=== PATIENT | male | born 1985 | race Caucasian/White ===

== ENCOUNTER 2019-08-10 13:22 | Emergency (ER) | payer SELFPAY ==
[~2019-08-10] VITALS: Ht 180 cm; Wt 80.0 kg
[2019-08-10] MEDS ORDERED: NS IV 1000 ML 1,000 ML IV SCH (13:45)
[2019-08-10] MEDS ORDERED: ONDANSETRON 4 MG/2 ML (SDV) Z0FRAN IVP ONE (13:45)
[2019-08-10] MEDS ORDERED: fentaNYL INJECTION 100 MCG/2 ML AMP IVP ONE (13:45)
--- NOTE | 2019-08-10 13:48 | ED General ---
General Chief Complaint: Neurological Problems Stated Complaint: POSSIBLE SEIZURE History of Present Illness Date Seen by Provider: Aug 10, 2019 Time Seen by Provider: 16:41 Initial Comments Patient presenting to emergency department for evaluation of seizure-like activity that occurred while in the car earlier today. History was provided by EMS and mother and patient. They said that they went to go get something to eat and on the way home patient started having flailing activity of his arms and legs and mother said that she has had relatively seizures and this looked exactly like for body tonic-clonic seizure. She thinks it lasted around 1-2 minutes. Patient was slightly confused afterwards but there is no bowel or bladder incontinence or tongue biting. Patient denies ever having a seizure before in the past and does not take any seizure medications. He recently was in rehabilitation for alcohol but left rehabilitation 3 weeks ago but is still on gabapentin. Mother said that this is for withdrawal and to keep him from drinking. Patient says he has some upper abdominal pain and he had 2 episodes of nonbloody nonbilious emesis. He is in no obvious distress with normal vital signs. Allergies and Home Medications Allergies Coded Allergies: penicillin G (Verified Allergy, Unknown, 08/10/19) Patient Home Medication List Home Medication List Reviewed: Yes Review of Systems Review of Systems Constitutional: no symptoms reported EENTM: no symptoms reported Respiratory: no symptoms reported Cardiovascular: no symptoms reported Gastrointestinal: abdominal pain, nausea, vomiting Genitourinary: no symptoms reported Musculoskeletal: no symptoms reported Skin: no symptoms reported Psychiatric/Neurological: Seizure All Other Systems Reviewed Negative Unless Noted: Yes Past Oncrdxr-Byumqe-Xolqdx Hx Patient Social History Recent Foreign Travel: Yes Physical Exam Vital Signs Capillary Refill : Height, Weight, BMI Height: '" Weight: lbs. oz. kg; BMI Method: General Appearance: No Apparent Distress, WD/WN HEENT: PERRL/EOMI Neck: Supple Respiratory: Lungs Clear, No Respiratory Distress Cardiovascular: Regular Rate, Rhythm, Normal Peripheral Pulses Gastrointestinal: Non Tender, Soft Back: Normal Inspection Extremity: Normal Capillary Refill Neurologic/Psychiatric: Alert, Oriented x3, No Motor/Sensory Deficits, Normal Mood/Affect, general counselor II-XII Norm as Tested Skin: Warm/Dry Progress/Results/Core Measures Suspected Sepsis SIRS Temperature: Pulse: Respiratory Rate: Laboratory Tests 08/10/19 13:40: White Blood Count 9.9 Blood Pressure / Mean: Laboratory Tests 08/10/19 13:40: Creatinine 0.93, Platelet Count 296, Total Bilirubin 1.3H Results/Orders Lab Results Laboratory Tests Test 08/10/19 13:40 08/10/19 16:12 Range/Units White Blood Count 9.9 4.3-11.0 10^3/uL Red Blood Count 5.79 4.35-5.85 10^6/uL Hemoglobin 17.3 13.3-17.7 G/DL Hematocrit 51 40-54 % Mean Corpuscular Volume 88 80-99 FL Mean Corpuscular Hemoglobin 30 25-34 PG Mean Corpuscular Hemoglobin Concent 34 32-36 G/DL Red Cell Distribution Width 16.3 H 10.0-14.5 % Platelet Count 296 130-400 10^3/uL Mean Platelet Volume 9.2 7.4-10.4 FL Neutrophils (%) (Auto) 60 42-75 % Lymphocytes (%) (Auto) 28 12-44 % Monocytes (%) (Auto) 10 0-12 % Eosinophils (%) (Auto) 1 0-10 % Basophils (%) (Auto) 1 0-10 % Neutrophils # (Auto) 5.9 1.8-7.8 X 10^3 Lymphocytes # (Auto) 2.8 1.0-4.0 X 10^3 Monocytes # (Auto) 1.0 0.0-1.0 X 10^3 Eosinophils # (Auto) 0.1 0.0-0.3 10^3/uL Basophils # (Auto) 0.1 0.0-0.1 10^3/uL Sodium Level 140 135-145 MMOL/L Potassium Level 3.2 L 3.6-5.0 MMOL/L Chloride Level 96 L 98-107 MMOL/L Carbon Dioxide Level 20 L 21-32 MMOL/L Anion Gap 24 H 5-14 MMOL/L Blood Urea Nitrogen 4 L 7-18 MG/DL Creatinine 0.93 0.60-1.30 MG/DL Estimat Glomerular Filtration Rate > 60 BUN/Creatinine Ratio 4 Glucose Level 76 70-105 MG/DL Calcium Level 9.6 8.5-10.1 MG/DL Corrected Calcium 9.4 8.5-10.1 MG/DL Total Bilirubin 1.3 H 0.1-1.0 MG/DL Aspartate Amino Transf (AST/SGOT) 35 H 5-34 U/L Alanine Aminotransferase (ALT/SGPT) 37 0-55 U/L Alkaline Phosphatase 220 H 40-136 U/L Total Protein 7.8 6.4-8.2 GM/DL Albumin 4.3 3.2-4.5 GM/DL Lipase 25 8-78 U/L Salicylates Level < 0.3 L 5.0-20.0 MG/DL Acetaminophen Level < 10 L 10-30 UG/ML Serum Alcohol < 10 <10 MG/DL Urine Color YELLOW Urine Clarity CLEAR Urine pH 6.5 5-9 Urine Specific Bard 1.010 L 1.016-1.022 Urine Protein TRACE H NEGATIVE Urine Glucose (UA) NEGATIVE NEGATIVE Urine Ketones NEGATIVE NEGATIVE Urine Nitrite NEGATIVE NEGATIVE Urine Bilirubin NEGATIVE NEGATIVE Urine Urobilinogen 1.0 < = 1.0 MG/DL Urine Leukocyte Esterase NEGATIVE NEGATIVE Urine RBC (Auto) TRACE H NEGATIVE Urine RBC 0-2 /HPF Urine WBC NONE /HPF Urine Crystals NONE /LPF Urine Bacteria NONE /HPF Urine Casts PRESENT /LPF Urine Hyaline Casts RARE /LPF Urine Mucus NEGATIVE /LPF Urine Culture Indicated NO Urine Opiates Screen NEGATIVE NEGATIVE Urine Oxycodone Screen NEGATIVE NEGATIVE Urine Methadone Screen NEGATIVE NEGATIVE Urine Propoxyphene Screen NEGATIVE NEGATIVE Urine Barbiturates Screen NEGATIVE NEGATIVE Ur Tricyclic Antidepressants Screen NEGATIVE NEGATIVE Urine Phencyclidine Screen NEGATIVE NEGATIVE Urine Amphetamines Screen NEGATIVE NEGATIVE Urine Methamphetamines Screen NEGATIVE NEGATIVE Urine Benzodiazepines Screen NEGATIVE NEGATIVE Urine Cocaine Screen NEGATIVE NEGATIVE Urine Cannabinoids Screen NEGATIVE NEGATIVE My Orders Orders - JONNY BUSBY DO Ct Abdomen/Pelvis W (08/10/19 13:41) Ct Head Wo (08/10/19 13:41) Cbc With Automated Diff (08/10/19 13:41) Comprehensive Metabolic Panel (08/10/19 13:41) Alcohol (08/10/19 13:41) Acetaminophen (08/10/19 13:41) Ua Culture If Indicated (08/10/19 13:41) Salicylate (08/10/19 13:41) Drug Screen Stat (Urine) (08/10/19 13:41) Lipase (08/10/19 13:41) Ekg Tracing (08/10/19 13:41) Ondansetron Injection (Zofran Injectio (08/10/19 13:45) Ns Iv 1000 Ml (Sodium Chloride 0.9%) (08/10/19 13:45) Fentanyl Injection (Sublimaze Injection (08/10/19 13:45) Lactated Ringers (Lr 1000 Ml Iv Solution (08/10/19 14:45) Potassium Chloride (Tablet) (K Dur Table (08/10/19 14:45) Iohexol Injection (Omnipaque 350 Mg/Ml 1 (08/10/19 15:00) Received Contrast (Hold Metformin- Contr (08/10/19 15:00) Sodium Chloride Flush (Catheter Flush Sy (08/10/19 15:00) Ns (Ivpb) (Sodium Chloride 0.9% Ivpb Bag (08/10/19 15:00) Medications Given in ED Current Medications Medications Dose Ordered Sig/Ronnell Route Start Time Stop Time Status Last Admin Dose Admin Fentanyl Citrate 50 mcg ONCE ONCE IVP 08/10/19 13:45 08/10/19 13:46 DC 08/10/19 14:00 50 MCG Ondansetron HCl 4 mg ONCE ONCE IVP 08/10/19 13:45 08/10/19 13:46 DC 08/10/19 14:00 4 MG Potassium Chloride 40 meq ONCE ONCE PO 08/10/19 14:45 08/10/19 14:46 DC 08/10/19 15:25 40 MEQ Vital Signs/I&O Capillary Refill : Progress Note : Progress Note Patient certainly sounds as if he had a seizure. This would be his first time seizure. I told him I do not have EEG or MRI which would usually be recommended as a next step for first time seizure and that he would need to transfer him to the hospital with capabilities of doing these tests and a neurologic consultation. Patient said he did not want to do this at this time and he makes his own medical decisions. I explained why I wanted to the test and he verbalized understanding and accepted the risks of and disability by not going forward with continued workup. Mother stated that she would bring him back immediately if he had any seizure activity and that then they would be willing to be transferred. Patient told to keep taking all his medications as prescribed and follow primary care provider tomorrow or the next day as he will need further testing and likely consultation and to come back to emergency Department sooner with any worsening pain neurologic changes other general concerns. Patient and mother aware and agreeable with plan and verbalized understanding of the above instructions. Of note he had multiple insulin findings on CT and labs which I discussed with him and the need for follow-up for this as well. Departure Impression Primary Impression: Convulsions Qualified Codes: R56.9 - Unspecified convulsions Disposition: HOME, SELF-CARE Condition: Stable Departure-Patient Inst. Patient Instructions: Epilepsy in Adults JONNY BUSBY DO Aug 10, 2019 13:48
[2019-08-10 14:16] LABS: BASOPHILS # (AUTO) 0.1 10^3/uL (0.0-0.1); BASOPHILS % (AUTO) 1 % (0-10); EOSINOPHILS # (AUTO) 0.1 10^3/uL (0.0-0.3); EOSINOPHILS % (AUTO) 1 % (0-10); HEMATOCRIT 51 % (40-54); HEMOGLOBIN 17.3 G/DL (13.3-17.7); LYMPHOCYTES # (AUTO) 2.8 X 10^3 (1.0-4.0); LYMPHOCYTES % (AUTO) 28 % (12-44); MEAN CORPUSCULAR HEMOGLOBIN 30 PG (25-34); MEAN CORPUSCULAR HGB CONC 34 G/DL (32-36); MEAN CORPUSCULAR VOLUME 88 FL (80-99); MEAN PLATELET VOLUME 9.2 FL (7.4-10.4); MONOCYTES % (AUTO) 10 % (0-12); NEUTROPHILS # (AUTO) 5.9 X 10^3 (1.8-7.8); NEUTROPHILS % (AUTO) 60 % (42-75); PLATELET COUNT 296 10^3/uL (130-400); RED CELL DISTRIBUTION WIDTH 16.3 % (10.0-14.5); WHITE BLOOD COUNT 9.9 10^3/uL (4.3-11.0)
[2019-08-10 14:22] LABS: CARBON DIOXIDE 20 MMOL/L (21-32); CHLORIDE 96 MMOL/L (98-107); POTASSIUM 3.2 MMOL/L (3.6-5.0); SODIUM 140 MMOL/L (135-145)
[2019-08-10 14:23] LABS: ACETAMINOPHEN < 10 UG/ML (10-30); ALANINE AMINOTRANSFERASE 37 U/L (0-55); ALBUMIN 4.3 GM/DL (3.2-4.5); ALKALINE PHOSPHATASE 220 U/L (40-136); BILIRUBIN,TOTAL 1.3 MG/DL (0.1-1.0); BUN/CREATININE RATIO 4; CALCIUM 9.6 MG/DL (8.5-10.1); CREATININE SERUM 0.93 MG/DL (0.60-1.30); GFR ESTIMATED > 60; GLUCOSE 76 MG/DL (70-105); LIPASE 25 U/L (8-78); SALICYLATE < 0.3 MG/DL (5.0-20.0); TOTAL PROTEIN 7.8 GM/DL (6.4-8.2)
[2019-08-10] MEDS ORDERED: KCL 20 MEQ TAB (K-DUR) PO ONE (14:45)
[2019-08-10] MEDS ORDERED: LACTATED RINGERS 1,000 ML IV SCH (14:45)
[2019-08-10] MEDS ORDERED: CATHETER FLUSH 10 ML SYR IV PRN (15:00)
[2019-08-10] MEDS ORDERED: HOLD METFORMIN - RECEIVED CONTRAST 20 ML VIAL IV SCH (15:00)
[2019-08-10] MEDS ORDERED: IOHEXOL 350 MG/ML 100 ML (OMNIPAQUE 350) VIAL IV ONE (15:00)
[2019-08-10] MEDS ORDERED: NS 100 ML (IVPB) BAG IV ONE (15:00)
--- NOTE | 2019-08-10 15:02 | Diagnostic Imaging Report ---
PROCEDURE: CT head without contrast. TECHNIQUE: Multiple contiguous axial images were obtained through the brain without the use of intravenous contrast. Auto Exposure Controls were utilized during the CT exam to meet ALARA standards for radiation dose reduction. INDICATION: Blacked out. COMPARISON: No prior studies are available for comparison. FINDINGS: The ventricles and sulci are within normal limits. No sulcal effacement, midline shift, or hemorrhage is detected. The cisterns are patent. The visualized paranasal sinuses are clear. IMPRESSION: No acute intracranial process is detected. Dictated by: Dictated on workstation # [id number]
--- NOTE | 2019-08-10 15:09 | Diagnostic Imaging Report ---
PROCEDURE: CT abdomen and pelvis with contrast. TECHNIQUE: Multiple contiguous axial images were obtained through the abdomen and pelvis after administration of intravenous contrast. Auto Exposure Controls were utilized during the CT exam to meet ALARA standards for radiation dose reduction. INDICATION: Abdominal pain. COMPARISON: There are no prior studies available for comparison. FINDINGS: The liver is of lower density than usually seen. This appearance does suggest fatty metamorphosis. The liver is also mildly enlarged measuring 21 cm in length. There is no focal mass involving the liver and the biliary tree is not abnormally dilated. The spleen, pancreas, adrenals, kidneys, gallbladder, aorta and inferior vena cava show no sign of an acute abnormality. The stomach is partially filled with fluid and consequently difficult to assess. There is no pelvic mass or free fluid collection evident. The urinary bladder and prostate gland are grossly unremarkable. The appendix is not particularly well visualized but there are no indirect signs of acute appendicitis. The bone windows show no evidence for fracture or for destructive lesion. The lung bases are clear. IMPRESSION: 1. There is no acute abnormality of the abdomen or pelvis. 2. The liver is mildly enlarged and low density appearance of the liver does suggest fatty metamorphosis. Dictated by: Dictated on workstation # [id number]
[2019-08-10 16:23] LABS: BILIRUBIN,URINE NEGATIVE (NEGATIVE); CLARITY,URINE CLEAR; COLOR,URINE YELLOW; GLUCOSE, URINE (UA) NEGATIVE (NEGATIVE); HYALINE CASTS, URINE RARE /LPF; KETONES,URINE NEGATIVE (NEGATIVE); LEUKOCYTE ESTERASE ,URINE NEGATIVE (NEGATIVE); NITRITE,URINE NEGATIVE (NEGATIVE); PH,URINE 6.5 (5-9); PROTEIN,URINE TRACE (NEGATIVE); RBC,URINE 0-2 /HPF
[2019-08-10 16:28] LABS: AMPHETAMINE SCREEN, URINE NEGATIVE (NEGATIVE); BARBITURATE SCREEN URINE NEGATIVE (NEGATIVE); BENZODIAZEPINES SCREEN URINE NEGATIVE (NEGATIVE); CANNABINOID SCREEN, URINE NEGATIVE (NEGATIVE); COCAINE SCREEN URINE NEGATIVE (NEGATIVE); METHADONE STAT NEGATIVE (NEGATIVE); METHAMPHETAMINE SCREEN URINE S NEGATIVE (NEGATIVE); OPIATE SCREEN URINE NEGATIVE (NEGATIVE); OXYCODONE STAT NEGATIVE (NEGATIVE); PROPOXYPHENE STAT NEGATIVE (NEGATIVE); TRICYCLIC ANTIDEPRESSANTS SCRE NEGATIVE (NEGATIVE)
[2019-08-10 16:48] VITALS: BP 155/92
== END 2019-08-10 16:57 | disposition home or self-care (01) ==
LOC: ER FS 13:24
DX: R56.9 Unspecified convulsions (principal); Z88.0 Allergy status to penicillin
CPT/HCPCS: 36415; 70450; 74177; 80053; 80306; 80320; 80329; 81000; 83690; 85025; 93005

== ENCOUNTER 2019-09-12 20:24 | Emergency (ER) | payer SELFPAY ==
[~2019-09-12] VITALS: Ht 180.3 cm; Wt 81.7 kg
--- OUTSIDE RECORDS SUMMARY | 2019-09-12 20:40 | XMS REPORT | Continuity of Care Document ---
Author Organization Unknown Address Unknown Phone Unavailable Allergies Active Description Code Type Severity Reaction Onset Reported/Identified Relationship to Patient Clinical Status Yes No Known Drug Allergies [id number] Drug Allergy Unknown N/A 08/10/2019 Yes penicillin G [id number] Drug Allergy Unknown N/A 08/10/2019 Medications There is no data. Problems There is no data. Procedures There is no data. Results Test Result Range Complete blood count (CBC) with automate d white blood cell (WBC) differential - 08/10/19 13:40 Blood leukocytes automated count (number/volume) 9.9 10*3/uL 4.3-11.0 Blood erythrocytes automated count (number/volume) 5.79 10*6/uL 4.35-5.85 Venous blood hemoglobin measurement (mass/volume) 17.3 g/dL 13.3-17.7 Blood hematocrit (volume fraction) 51 % 40-54 Automated erythrocyte mean corpuscular volume 88 [ foz_us] 80-99 Automated erythrocyte mean corpuscular h emoglobin (mass per erythrocyte) 30 pg 25-34 Automated erythrocyte mean corpuscular h emoglobin concentration measurement (mass/volume) 34 g/dL 32-36 Automated erythrocyte distribution width ratio 16. 3 % 10.0- 14.5 Automated blood platelet count (count/volume) 296 10*3/uL 130-400 Automated blood platelet mean volume measurement 9.2 [foz_us] 7.4-10.4 Automated blood neutrophils/100 leukocytes 60 % 42-75 Automated blood lymphocytes/100 leukocytes 28 % 12-44 Blood monocytes/100 leukocytes 10 % 0-12 Automated blood eosinophils/100 leukocytes 1 % 0-10 Automated blood basophils/100 leukocytes 1 % 0-10 Blood neutrophils automated count (number/volume) 5.9 10*3 1.8-7.8 Blood lymphocytes automated count (number/volume) 2.8 10*3 1.0-4.0 Blood monocytes automated count (number/volume) 1. 0 10*3 0.0-1.0 Automated eosinophil count 0.1 10*3/uL 0 .0-0.3 Automated blood basophil count (count/volume) 0.1 10*3/uL 0.0-0.1 Comprehensive metabolic panel - 08/10/19 13:40 Serum or plasma sodium measurement (moles/volume) 140 mmol/L 135-145 Serum or plasma potassium measurement (moles/volume) 3.2 mmol/L 3.6-5.0 Serum or plasma chloride measurement (moles/volume) 96 mmol/L 98-107 Carbon dioxide 20 mmol/L 21-32 Serum or plasma anion gap determination (moles/volume) 24 mmol/L 5-14 Serum or plasma urea nitrogen measurement (mass/volume ) 4 mg/dL 7-18 Serum or plasma creatinine measurement (mass/volume) 0.93 mg/dL 0.60-1.30 Serum or plasma urea nitrogen/creatinine mass ratio 4 NRG Serum or plasma creatinine measurement w ith calculation of estimated glomerular filtration rate > NRG Serum or plasma glucose measurement (mass/volume) 76 mg/dL 70-105 Serum or plasma calcium measurement (mass/volume) 9.6 mg/dL 8.5-10.1 Serum or plasma total bilirubin measurement (mass/volu me) 1.3 mg/dL 0.1-1.0 Serum or plasma alkaline phosphatase lazaro surement (enzymatic activity/volume) 220 U/L 40-136 Serum or plasma aspartate aminotransfera se measurement (enzymatic activity/volume) 35 U/L 5-34 Serum or plasma alanine aminotransferase measurement (enzymatic activity/volume) 37 U/L 0-55 Serum or plasma protein measurement (mass/volume) 7.8 g/dL 6.4-8.2 Serum or plasma albumin measurement (mass/volume) 4.3 g/dL 3.2-4.5 CALCIUM CORRECTED 9.4 mg/dL 8.5-10.1 Lipase - 08/10/19 13:40 Lipase 25 U/L 8-78 Serum or plasma salicylates measurement (mass/volume) - 08/10/19 13:40 Serum or plasma salicylates measurement (mass/volume) < mg/dL 5.0-20.0 Serum or plasma acetaminophen measuremen t (mass/volume) - 08/10/19 13:40 Serum or plasma acetaminophen measurement (mass/volume ) < ug/mL 10-30 Serum or plasma ethanol measurement (mas s/volume) - 08/10/19 13:40 Serum or plasma ethanol measurement (mass/volume) < mg/dL <10 Complete urinalysis with reflex to cultu re - 08/10/19 16:12 Urine color determination YELLOW NRG Urine clarity determination CLEAR NR G Urine pH measurement by test strip 6.5 5-9 Specific gravity of urine by test strip 1.010 1.016-1.022 Urine protein assay by test strip, semi-quantitative TRACE NEGATIVE Urine glucose detection by automated test strip NE GATIVE NEGATIVE Erythrocytes detection in urine sediment by light micr oscopy TRACE NEGATIVE Urine ketones detection by automated test strip NE GATIVE NEGATIVE Urine nitrite detection by test strip NEGATIVE NEGATIVE Urine total bilirubin detection by test strip NEGA TIVE NEGATIVE Urine urobilinogen measurement by automated test strip (mass/volume) 1.0 mg/dL < = 1.0 Urine leukocyte esterase detection by dipstick NEG ATIVE NEGATIVE Automated urine sediment erythrocyte cou nt by microscopy (number/high power field) [HPF] NRG Automated urine sediment leukocyte count by microscopy (number/high power field) NONE NRG Bacteria detection in urine sediment by light microsco py NONE NRG Crystals detection in urine sediment by light microsco py NONE NRG Casts detection in urine sediment by light microscopy PRESENT NRG Mucus detection in urine sediment by light microscopy NEGATIVE NRG Complete urinalysis with reflex to culture NO NRG Hyaline casts detection in urine sediment by light ariela roscopy RARE NRG Urine drug screening test - 08/10/19 16: 12 Urine phencyclidine detection by screening method NEGATIVE NEGATIVE Urine benzodiazepines detection by screening method NEGATIVE NEGATIVE Urine cocaine detection NEGATIVE NEGATI VE Urine amphetamines detection by screening method N EGATIVE NEGATIVE Urine methamphetamine detection by screening method NEGATIVE NEGATIVE Urine cannabinoids detection by screening method N EGATIVE NEGATIVE Urine opiates detection by screening method NEGATI VE NEGATIVE Urine barbiturates detection NEGATIVE N EGATIVE Screening urine tricyclic antidepressants detection NEGATIVE NEGATIVE Urine methadone detection by screening method NEGA TIVE NEGATIVE Urine oxycodone detection NEGATIVE NEGA TIVE Urine propoxyphene detection NEGATIVE N EGATIVE Encounters ACCT No. Visit Date/Time Discharge Status Pt. Type Provider Facility Loc./Unit Complaint [id number] 08/10/2019 13:24:00 020 16:57:00 DIS Emergency JONNY BUSBY DO [facility] FS POSSIBLE SEIZURE
--- NOTE | 2019-09-12 20:44 | ED Syncope ---
General Chief Complaint: Dizziness/Syncope Stated Complaint: NEAR SYNCOPE Source of Information: Patient Exam Limitations: No Limitations History of Present Illness Date Seen by Provider: Sep 12, 2019 Time Seen by Provider: 20:35 Initial Comments Patient resents ER by EMS from [place] with chief complaint that about an hour ago he was paying for gas and got his debit card out and dropped it on the ground. When he bent over to pick it up he became woozy lightheaded dizzy and felt like he was going to black out. He immediately sat down on the ground and help was summonsed. If the blood sugar 134 per EMS. He denies ever losing consciousness. He has no history of epilepsy, syncopal episodes, coronary disease, dysrhythmias palpitations chest pain or shortness of breath. He had a wave of nausea that went away. He said he had a cold sweat for couple minutes when it first happened. No history of diabetes. Does not take any medications. Allergies and Home Medications Allergies Coded Allergies: penicillin G (Verified Allergy, Unknown, 08/10/19) Patient Home Medication List Home Medication List Reviewed: Yes Review of Systems Constitutional: No chills, No diaphoresis EENTM: No ear discharge, No ear pain Respiratory: No cough, No short of breath Cardiovascular: No chest pain, No edema Gastrointestinal: No abdominal pain, No constipation Genitourinary: No discharge, No dysuria Musculoskeletal: No back pain, No joint pain All Other Systems Reviewed Negative Unless Noted: Yes Past Smzqfda-Gqcyym-Vwqkru Hx Patient Social History Alcohol Use: Denies Use Recreational Drug Use: No Smoking Status: Current Everyday Smoker Type Used: Cigarettes 2nd Hand Smoke Exposure: No Recent Foreign Travel: No Contact w/Someone Who Travel: No Recent Hopitalizations: No Seasonal Allergies Seasonal Allergies: No Past Medical History Surgeries: Yes (THORACIC SURGERY) Respiratory: No Cardiac: No Neurological: No Genitourinary: No Gastrointestinal: No Musculoskeletal: No Endocrine: No HEENT: No Psychosocial: Yes (ALCOHOLISM) Anxiety Integumentary: No Physical Exam Vital Signs Vital Signs - First Documented 09/12/19 20:29 Temp 36.7 Pulse 86 Resp 18 B/P (MAP) 112/78 (89) O2 Delivery Room Air Capillary Refill : Height, Weight, BMI Height: '" Weight: lbs. oz. kg; 24.00 BMI Method: General Appearance: No Apparent Distress, WD/WN HEENT: PERRL/EOMI, Pharynx Normal, Moist Mucous Membranes Neck: Full Range of Motion, Normal Inspection Cardiovascular: Regular Rate, Rhythm, No Edema, No Gallop, No JVD, No Murmur, Normal Peripheral Pulses Respiratory: Chest Non Tender, Lungs Clear, Normal Breath Sounds, No Accessory Muscle Use, No Respiratory Distress Gastrointestinal: Normal Bowel Sounds, Non Tender, Soft Extremities: Normal Capillary Refill, Normal Inspection, No Pedal Edema Neurologic/Psychiatric: Alert, Oriented x3, No Motor/Sensory Deficits, Normal Mood/Affect, vba developer II-XII Norm as Tested, Other (walk to the bathroom unaided) Cranial Nerves: Normal Hearing, Normal Speech, PERRL Motor/Sensory: No Motor Deficit, No Sensory Deficit Skin: Normal Color, Warm/Dry Progress/Results/Core Measures Results/Orders Lab Results Laboratory Tests Test 09/12/19 20:50 09/12/19 21:05 Range/Units White Blood Count 10.4 4.3-11.0 10^3/uL Red Blood Count 5.13 4.35-5.85 10^6/uL Hemoglobin 16.1 13.3-17.7 G/DL Hematocrit 47 40-54 % Mean Corpuscular Volume 92 80-99 FL Mean Corpuscular Hemoglobin 31 25-34 PG Mean Corpuscular Hemoglobin Concent 34 32-36 G/DL Red Cell Distribution Width 15.0 H 10.0-14.5 % Platelet Count 376 130-400 10^3/uL Mean Platelet Volume 8.8 7.4-10.4 FL Neutrophils (%) (Auto) 70 42-75 % Lymphocytes (%) (Auto) 20 12-44 % Monocytes (%) (Auto) 8 0-12 % Eosinophils (%) (Auto) 2 0-10 % Basophils (%) (Auto) 1 0-10 % Neutrophils # (Auto) 7.2 1.8-7.8 X 10^3 Lymphocytes # (Auto) 2.1 1.0-4.0 X 10^3 Monocytes # (Auto) 0.8 0.0-1.0 X 10^3 Eosinophils # (Auto) 0.2 0.0-0.3 10^3/uL Basophils # (Auto) 0.1 0.0-0.1 10^3/uL Sodium Level 140 135-145 MMOL/L Potassium Level 3.7 3.6-5.0 MMOL/L Chloride Level 101 98-107 MMOL/L Carbon Dioxide Level 27 21-32 MMOL/L Anion Gap 12 5-14 MMOL/L Blood Urea Nitrogen 10 7-18 MG/DL Creatinine 1.08 0.60-1.30 MG/DL Estimat Glomerular Filtration Rate > 60 BUN/Creatinine Ratio 9 Glucose Level 107 H 70-105 MG/DL Calcium Level 8.7 8.5-10.1 MG/DL Corrected Calcium 8.7 8.5-10.1 MG/DL Total Bilirubin 0.4 0.1-1.0 MG/DL Aspartate Amino Transf (AST/SGOT) 27 5-34 U/L Alanine Aminotransferase (ALT/SGPT) 48 0-55 U/L Alkaline Phosphatase 168 H 40-136 U/L Troponin I < 0.30 <0.30 NG/ML Pro-B-Type Natriuretic Peptide 43.7 <75.0 PG/ML Total Protein 7.2 6.4-8.2 GM/DL Albumin 4.0 3.2-4.5 GM/DL Urine Color YELLOW Urine Clarity CLEAR Urine pH 7.0 5-9 Urine Specific [place] 1.010 L 1.016-1.022 Urine Protein 1+ H NEGATIVE Urine Glucose (UA) NEGATIVE NEGATIVE Urine Ketones NEGATIVE NEGATIVE Urine Nitrite NEGATIVE NEGATIVE Urine Bilirubin NEGATIVE NEGATIVE Urine Urobilinogen 2.0 < = 1.0 MG/DL Urine Leukocyte Esterase NEGATIVE NEGATIVE Urine RBC (Auto) NEGATIVE NEGATIVE Urine RBC NONE /HPF Urine WBC NONE /HPF Urine Crystals NONE /LPF Urine Bacteria NEGATIVE /HPF Urine Casts NONE /LPF Urine Mucus NEGATIVE /LPF Urine Culture Indicated NO Urine Opiates Screen NEGATIVE NEGATIVE Urine Oxycodone Screen NEGATIVE NEGATIVE Urine Methadone Screen NEGATIVE NEGATIVE Urine Propoxyphene Screen NEGATIVE NEGATIVE Urine Barbiturates Screen NEGATIVE NEGATIVE Ur Tricyclic Antidepressants Screen NEGATIVE NEGATIVE Urine Phencyclidine Screen NEGATIVE NEGATIVE Urine Amphetamines Screen NEGATIVE NEGATIVE Urine Methamphetamines Screen NEGATIVE NEGATIVE Urine Benzodiazepines Screen NEGATIVE NEGATIVE Urine Cocaine Screen NEGATIVE NEGATIVE Urine Cannabinoids Screen NEGATIVE NEGATIVE My Orders Orders - DEE MUKHERJEE Ekg Tracing (09/12/19 20:41) Continuous Ekg Monitoring (09/12/19 20:41) Chest 1 View Ap/Pa Only (09/12/19 20:41) Cbc With Automated Diff (09/12/19 20:41) Comprehensive Metabolic Panel (09/12/19 20:41) Ua Culture If Indicated (09/12/19 20:41) Drug Screen Stat (Urine) (09/12/19 20:41) Orthostatic Vital Signs (Adult (09/12/19 20:41) Troponin I Fs (09/12/19 20:41) Probnp Fs (09/12/19 20:41) Vital Signs/I&O 09/12/19 09/12/19 20:29 21:00 Temp 36.7 Pulse 86 86 82 102 Resp 18 B/P (MAP) 112/78 (89) 112/78 (89) 110/81 (91) 93/57 (69) O2 Delivery Room Air Progress Progress Note : Time: 22:08 Progress Note Near syncopal event. His labs including troponin and BNP are okay. -2 points on the [place] syncope score. Very low risk; 0.7% risk of 30-day serious adverse event. EKG unremarkable. Orthostatics go from 112 to 93 systolic standing which is 1 mmHg short of being positive. We gave him a liter fluids and encouraged him to drink oral fluids. Initial ECG Impression Date: Sep 12, 2019 Initial ECG Impression Time: 20:51 Initial ECG Rate: 68 Initial ECG Rhythm: Normal Sinus Initial ECG Intervals: Normal Initial ECG Impression: Normal Comment Normal sinus rhythm without clinically relevant ST elevation or depression. Diagnostic Imaging Diagonstic Imaging: Xray Plain Films/CT/US/NM/MRI: chest Comments [facility], [facility]. [place], [place] NAME: MILAGRO RANDALL [facility] REC#: [id number] PT STATUS: REG ER : 1985 PHYSICIAN: DEE MUKHERJEE MD ADMIT DATE: 09/12/19/ER FS Signed Date of Exam:09/12/19 CHEST 1 VIEW AP/PA ONLY INDICATION: Acute onset dizziness. TECHNIQUE: Single view chest 9:01 PM. CORRELATION STUDY: None FINDINGS: The heart size, mediastinal configuration and pulmonary vascularity are within normal limits. The lungs are clear with no consolidating infiltrate. There is no significant effusion or pneumothorax. Surgical clips are noted the base of neck on the right. IMPRESSION: 1. Negative for acute abnormality of the chest on single view chest. Dictated by: Dictated on workstation # [id number] Dict: 09/12/192122 Trans: 09/12/192203 DO [id number] Interpreted by: ENDY ESCOBAR DO Electronically signed by: ENDY ESCOBAR DO 09/12/192203 Reviewed: Reviewed by Me Departure Impression Primary Impression: Postural dizziness with near syncope Disposition: HOME, SELF-CARE Condition: Stable Departure-Patient Inst. Decision time for Depature: 22:12 Referrals: Guanakito MORIN MD NO,LOCAL PHYSICIAN (PCP) Primary Care Physician Patient Instructions: Syncope (Fainting) (DC) Add. Discharge Instructions: I suspect your syncope/nearly passing out is partially because you are mildly dehydrated and partially because of your posture when you're bending over. I encourage you to drink lots of fluids over the next couple days. Tomorrow call the emergency department technician Dr. Morin for a follow-up appointment in the clinic to discuss your symptoms and continue any further indicated workup. Return to the ER to begin to experience chest pain, shortness of breath or other worrisome symptoms All discharge instructions reviewed with patient and/or family. Voiced understanding. Copy Copies To 1: Guanakito MORIN MD, TITUS J Sep 12, 2019 20:44
[2019-09-12 20:57] LABS: WHITE BLOOD COUNT 10.4 10^3/uL (4.3-11.0)
[2019-09-12 20:58] LABS: BASOPHILS # (AUTO) 0.1 10^3/uL (0.0-0.1); BASOPHILS % (AUTO) 1 % (0-10); EOSINOPHILS # (AUTO) 0.2 10^3/uL (0.0-0.3); EOSINOPHILS % (AUTO) 2 % (0-10); HEMATOCRIT 47 % (40-54); HEMOGLOBIN 16.1 G/DL (13.3-17.7); LYMPHOCYTES # (AUTO) 2.1 X 10^3 (1.0-4.0); LYMPHOCYTES % (AUTO) 20 % (12-44); MEAN CORPUSCULAR HEMOGLOBIN 31 PG (25-34); MEAN CORPUSCULAR HGB CONC 34 G/DL (32-36); MEAN CORPUSCULAR VOLUME 92 FL (80-99); MEAN PLATELET VOLUME 8.8 FL (7.4-10.4); MONOCYTES # (AUTO) 0.8 X 10^3 (0.0-1.0); MONOCYTES % (AUTO) 8 % (0-12); NEUTROPHILS # (AUTO) 7.2 X 10^3 (1.8-7.8); NEUTROPHILS % (AUTO) 70 % (42-75); PLATELET COUNT 376 10^3/uL (130-400)
[2019-09-12 21:00] VITALS: BP_SYST 110; BP_SYST 112; BP_SYST 93; BP_DIAS 57; BP_DIAS 78; BP_DIAS 81
[2019-09-12 21:16] LABS: CARBON DIOXIDE 27 MMOL/L (21-32); CHLORIDE 101 MMOL/L (98-107); POTASSIUM 3.7 MMOL/L (3.6-5.0); SODIUM 140 MMOL/L (135-145)
[2019-09-12 21:17] LABS: ALANINE AMINOTRANSFERASE 48 U/L (0-55); ALKALINE PHOSPHATASE 168 U/L (40-136); BILIRUBIN,TOTAL 0.4 MG/DL (0.1-1.0); BUN/CREATININE RATIO 9; CALCIUM 8.7 MG/DL (8.5-10.1); CREATININE SERUM 1.08 MG/DL (0.60-1.30); GFR ESTIMATED > 60; GLUCOSE 107 MG/DL (70-105); TOTAL PROTEIN 7.2 GM/DL (6.4-8.2)
[2019-09-12 21:22] LABS: BACTERIA,URINE NEGATIVE /HPF; BILIRUBIN,URINE NEGATIVE (NEGATIVE); CLARITY,URINE CLEAR; COLOR,URINE YELLOW; GLUCOSE, URINE (UA) NEGATIVE (NEGATIVE); KETONES,URINE NEGATIVE (NEGATIVE); LEUKOCYTE ESTERASE ,URINE NEGATIVE (NEGATIVE); NITRITE,URINE NEGATIVE (NEGATIVE); PROTEIN,URINE 1+ (NEGATIVE)
[2019-09-12 21:24] LABS: AMPHETAMINE SCREEN, URINE NEGATIVE (NEGATIVE); BARBITURATE SCREEN URINE NEGATIVE (NEGATIVE); BENZODIAZEPINES SCREEN URINE NEGATIVE (NEGATIVE); CANNABINOID SCREEN, URINE NEGATIVE (NEGATIVE); COCAINE SCREEN URINE NEGATIVE (NEGATIVE); METHADONE STAT NEGATIVE (NEGATIVE); METHAMPHETAMINE SCREEN URINE S NEGATIVE (NEGATIVE); OPIATE SCREEN URINE NEGATIVE (NEGATIVE); OXYCODONE STAT NEGATIVE (NEGATIVE); PROPOXYPHENE STAT NEGATIVE (NEGATIVE); TRICYCLIC ANTIDEPRESSANTS SCRE NEGATIVE (NEGATIVE)
--- NOTE | 2019-09-12 21:24 | Diagnostic Imaging Report ---
INDICATION: Acute onset dizziness. TECHNIQUE: Single view chest 9:01 PM. CORRELATION STUDY: None FINDINGS: The heart size, mediastinal configuration and pulmonary vascularity are within normal limits. The lungs are clear with no consolidating infiltrate. There is no significant effusion or pneumothorax. Surgical clips are noted the base of neck on the right. IMPRESSION: 1. Negative for acute abnormality of the chest on single view chest. Dictated by: Dictated on workstation # [id number]
[2019-09-12 22:24] VITALS: BP 119/77
== END 2019-09-12 22:24 | disposition home or self-care (01) ==
LOC: EDUNIT# 20:24 → ER FS 20:35
DX: R42 Dizziness and giddiness (principal); R55 Syncope and collapse; F17.210 Nicotine dependence, cigarettes, uncomplicated; Z88.0 Allergy status to penicillin
CPT/HCPCS: 36415; 71045; 80053; 80306; 81000; 83880; 84484; 85025; 93005

== ENCOUNTER 2020-03-16 17:18 | Emergency (ER) | payer SELFPAY ==
[~2020-03-16] VITALS: Ht 177.8 cm; Wt 81.8 kg
--- NOTE | 2020-03-16 17:35 | ED General ---
General Chief Complaint: Detox Stated Complaint: DETOX Source of Information: Patient History of Present Illness Date Seen by Provider: Mar 16, 2020 Time Seen by Provider: 17:32 Initial Comments 34-year-old male presents after drinking 4 pints of vodka today. History of chronic alcoholism and normally drinks 2-3 pints of vodka per day, today he drank 4. Interested in going to detox and says he has an appointment to be seen in [place] on 27 March for detox program. Has previously gone through one of these, but has relapsed. Currently involved with Alcoholics Anonymous. Denies suicidal or homicidal ideation, but is depressed. No new life Stressors. Allergies and Home Medications Allergies Coded Allergies: penicillin G (Verified Allergy, Unknown, 08/10/19) Patient Home Medication List Home Medication List Reviewed: Yes Review of Systems Review of Systems Constitutional: No chills, No fever; malaise; No weakness EENTM: no symptoms reported Respiratory: No cough, No short of breath Cardiovascular: No chest pain, No edema, No palpitations Gastrointestinal: No abdominal pain, No loss of appetite, No nausea, No vomiting Musculoskeletal: No back pain, No joint pain Skin: No change in color, No rash Psychiatric/Neurological: Denies Anxiety; Depressed; Denies Numbness, Denies Paresthesia, Denies Seizure, Denies Weakness Past Yioyvma-Gofvyd-Kpuhrm Hx Past Med/Social Hx: Reviewed Nursing Past Med/Soc Hx Patient Social History Type Used: Cigarettes 2nd Hand Smoke Exposure: No Recent Foreign Travel: No Contact w/Someone Who Travel: No Recent Hopitalizations: No Seasonal Allergies Seasonal Allergies: No Past Medical History Surgeries: Yes (THORACIC SURGERY) Respiratory: No Cardiac: No Neurological: No Genitourinary: No Gastrointestinal: No Musculoskeletal: No Endocrine: No HEENT: No Cancer: No Psychosocial: Yes (ALCOHOLISM) Anxiety Integumentary: No Blood Disorders: No Physical Exam Vital Signs Vital Signs - First Documented 03/16/20 17:35 Temp 37.1 Pulse 108 Resp 20 B/P (MAP) 135/98 (110) Pulse Ox 97 O2 Delivery Room Air Capillary Refill : Height, Weight, BMI Height: '" Weight: lbs. oz. kg; 25.00 BMI Method: General Appearance: No Apparent Distress, WD/WN HEENT: PERRL/EOMI, Normal ENT Inspection Neck: Full Range of Motion, Non Tender, Supple Respiratory: Chest Non Tender, Lungs Clear, Normal Breath Sounds Cardiovascular: Regular Rate, Rhythm, No Edema, No JVD Gastrointestinal: Normal Bowel Sounds, Non Tender, Soft Back: Normal Inspection, No CVA Tenderness Extremity: Normal Capillary Refill, Normal Inspection, Non Tender Neurologic/Psychiatric: Alert, Oriented x3, No Motor/Sensory Deficits, Other (clinically intoxicated.) Skin: Normal Color, Warm/Dry Progress/Results/Core Measures Suspected Sepsis SIRS Temperature: Pulse: Respiratory Rate: Laboratory Tests 03/16/20 17:35: White Blood Count 7.7 Blood Pressure / Mean: Laboratory Tests 03/16/20 17:35: Creatinine 0.85, Platelet Count 346, Total Bilirubin 0.5 Results/Orders Lab Results Laboratory Tests Test 03/16/20 17:23 03/16/20 17:35 Range/Units Urine Opiates Screen NEGATIVE NEGATIVE Urine Oxycodone Screen NEGATIVE NEGATIVE Urine Methadone Screen NEGATIVE NEGATIVE Urine Propoxyphene Screen NEGATIVE NEGATIVE Urine Barbiturates Screen NEGATIVE NEGATIVE Ur Tricyclic Antidepressants Screen NEGATIVE NEGATIVE Urine Phencyclidine Screen NEGATIVE NEGATIVE Urine Amphetamines Screen NEGATIVE NEGATIVE Urine Methamphetamines Screen NEGATIVE NEGATIVE Urine Benzodiazepines Screen NEGATIVE NEGATIVE Urine Cocaine Screen NEGATIVE NEGATIVE Urine Cannabinoids Screen NEGATIVE NEGATIVE White Blood Count 7.7 4.3-11.0 10^3/uL Red Blood Count 5.50 4.35-5.85 10^6/uL Hemoglobin 17.4 13.3-17.7 G/DL Hematocrit 50 40-54 % Mean Corpuscular Volume 91 80-99 FL Mean Corpuscular Hemoglobin 32 25-34 PG Mean Corpuscular Hemoglobin Concent 35 32-36 G/DL Red Cell Distribution Width 14.1 10.0-14.5 % Platelet Count 346 130-400 10^3/uL Mean Platelet Volume 9.0 7.4-10.4 FL Immature Granulocyte % (Auto) 0 % Neutrophils (%) (Auto) 51 42-75 % Lymphocytes (%) (Auto) 41 12-44 % Monocytes (%) (Auto) 6 0-12 % Eosinophils (%) (Auto) 1 0-10 % Basophils (%) (Auto) 1 0-10 % Neutrophils # (Auto) 3.9 1.8-7.8 X 10^3 Lymphocytes # (Auto) 3.1 1.0-4.0 X 10^3 Monocytes # (Auto) 0.5 0.0-1.0 X 10^3 Eosinophils # (Auto) 0.1 0.0-0.3 10^3/uL Basophils # (Auto) 0.1 0.0-0.1 10^3/uL Immature Granulocyte # (Auto) 0.0 0.0-0.1 10^3/uL Sodium Level 142 135-145 MMOL/L Potassium Level 3.7 3.6-5.0 MMOL/L Chloride Level 105 98-107 MMOL/L Carbon Dioxide Level 24 21-32 MMOL/L Anion Gap 13 5-14 MMOL/L Blood Urea Nitrogen 7 7-18 MG/DL Creatinine 0.85 0.60-1.30 MG/DL Estimat Glomerular Filtration Rate > 60 BUN/Creatinine Ratio 8 Glucose Level 133 H 70-105 MG/DL Calcium Level 8.5 8.5-10.1 MG/DL Corrected Calcium 8.2 L 8.5-10.1 MG/DL Total Bilirubin 0.5 0.1-1.0 MG/DL Aspartate Amino Transf (AST/SGOT) 47 H 5-34 U/L Alanine Aminotransferase (ALT/SGPT) 53 0-55 U/L Alkaline Phosphatase 177 H 40-136 U/L Total Protein 7.8 6.4-8.2 GM/DL Albumin 4.4 3.2-4.5 GM/DL Serum Alcohol 312 *H <10 MG/DL My Orders Orders - SARAH PATTERSON DO Ed Iv/Invasive Line Start (03/16/20 17:35) Alcohol (03/16/20 17:35) Cbc With Automated Diff (03/16/20 17:35) Comprehensive Metabolic Panel (03/16/20 17:35) Drug Screen Stat (Urine) (03/16/20 17:35) Ns Iv 1000 Ml (Sodium Chloride 0.9%) (03/16/20 17:45) Ibuprofen Tablet (Motrin Tablet) (03/16/20 18:00) Ns Iv 1000 Ml (Sodium Chloride 0.9%) (03/16/20 19:00) Medications Given in ED Current Medications Medications Dose Ordered Sig/Ronnell Route Start Time Stop Time Status Last Admin Dose Admin Ibuprofen 800 mg ONCE ONCE PO 03/16/20 18:00 03/16/20 18:01 DC 10/22/20 18:03 800 MG Vital Signs/I&O 03/16/20 17:35 Temp 37.1 Pulse 108 Resp 20 B/P (MAP) 135/98 (110) Pulse Ox 97 O2 Delivery Room Air Capillary Refill : Departure Impression Primary Impression: Alcohol abuse Disposition: 01 HOME, SELF-CARE Condition: Stable Departure-Patient Inst. Decision time for Depature: 19:08 Referrals: NO,LOCAL PHYSICIAN (PCP/Family) Primary Care Physician Patient Instructions: Alcohol Abuse and Alcoholism (DC) Add. Discharge Instructions: Follow up with your scheduled appointment for "Detox" as planned on 27 March. All discharge instructions reviewed with patient and/or family. Voiced understanding. SARAH PATTERSON DO Mar 16, 2020 17:35
[2020-03-16 17:43] LABS: BASOPHILS # (AUTO) 0.1 10^3/uL (0.0-0.1); BASOPHILS % (AUTO) 1 % (0-10); EOSINOPHILS # (AUTO) 0.1 10^3/uL (0.0-0.3); EOSINOPHILS % (AUTO) 1 % (0-10); HEMATOCRIT 50 % (40-54); HEMOGLOBIN 17.4 G/DL (13.3-17.7); LYMPHOCYTES # (AUTO) 3.1 X 10^3 (1.0-4.0); LYMPHOCYTES % (AUTO) 41 % (12-44); MEAN CORPUSCULAR HEMOGLOBIN 32 PG (25-34); MEAN CORPUSCULAR HGB CONC 35 G/DL (32-36); MEAN CORPUSCULAR VOLUME 91 FL (80-99); MONOCYTES # (AUTO) 0.5 X 10^3 (0.0-1.0); MONOCYTES % (AUTO) 6 % (0-12); NEUTROPHILS # (AUTO) 3.9 X 10^3 (1.8-7.8); NEUTROPHILS % (AUTO) 51 % (42-75); PLATELET COUNT 346 10^3/uL (130-400); WHITE BLOOD COUNT 7.7 10^3/uL (4.3-11.0)
[2020-03-16] MEDS ORDERED: NS IV 1000 ML 1,000 ML IV SCH ×2 (17:45→19:00)
[2020-03-16 17:52] LABS: AMPHETAMINE SCREEN, URINE NEGATIVE (NEGATIVE); BARBITURATE SCREEN URINE NEGATIVE (NEGATIVE); BENZODIAZEPINES SCREEN URINE NEGATIVE (NEGATIVE); CANNABINOID SCREEN, URINE NEGATIVE (NEGATIVE); COCAINE SCREEN URINE NEGATIVE (NEGATIVE); METHADONE STAT NEGATIVE (NEGATIVE); METHAMPHETAMINE SCREEN URINE S NEGATIVE (NEGATIVE); OPIATE SCREEN URINE NEGATIVE (NEGATIVE); OXYCODONE STAT NEGATIVE (NEGATIVE); PROPOXYPHENE STAT NEGATIVE (NEGATIVE); TRICYCLIC ANTIDEPRESSANTS SCRE NEGATIVE (NEGATIVE)
[2020-03-16] MEDS ORDERED: IBUPROFEN 800 MG (MOTRIN) TAB PO ONE (18:00)
[2020-03-16 18:01] LABS: ALANINE AMINOTRANSFERASE 53 U/L (0-55); ALBUMIN 4.4 GM/DL (3.2-4.5); ALKALINE PHOSPHATASE 177 U/L (40-136); BILIRUBIN,TOTAL 0.5 MG/DL (0.1-1.0); BUN/CREATININE RATIO 8; CALCIUM 8.5 MG/DL (8.5-10.1); CARBON DIOXIDE 24 MMOL/L (21-32); CHLORIDE 105 MMOL/L (98-107); CREATININE SERUM 0.85 MG/DL (0.60-1.30); GFR ESTIMATED > 60; GLUCOSE 133 MG/DL (70-105); POTASSIUM 3.7 MMOL/L (3.6-5.0); SODIUM 142 MMOL/L (135-145); TOTAL PROTEIN 7.8 GM/DL (6.4-8.2)
--- NOTE | 2020-03-16 18:48 | NUR ---
Report was given to NELIA Sethi. Care was transferred.
[2020-03-16] MEDS ORDERED: LORazepam INJ 2 MG/ML (ATIVAN) VIAL IVP ONE (20:00)
[2020-03-16 20:16] VITALS: BP 127/92
== END 2020-03-16 20:17 | disposition home or self-care (01) ==
LOC: EDUNIT# 17:18 → ER FS 17:19
DX: F10.129 Alcohol abuse with intoxication, unspecified (principal); Z88.0 Allergy status to penicillin
CPT/HCPCS: 36415; 80053; 80306; 85025; 99284; G0480; 80320

== ENCOUNTER 2021-03-28 02:34 | Emergency (ER) | payer SELFPAY ==
--- OUTSIDE RECORDS SUMMARY | 2021-03-28 02:43 | XMS REPORT | Clinical Summary ---
Author Author [facility] Address Unknown Phone Unavailable Care Team Providers Care Demolition Crane Operator Name Role Phone Unassigned, None PCP Unavailable Allergies Comments Active Allergy Reactions Severity Noted Date Penicillins Hives 07/22/2018 Medications No known medications Active Problems Not on file Immunizations Name Administration Dates Next Due Tdap 07/22/2018 Social History Date Tobacco Use Types Packs/Day Years Used Current Every Day Smoker Cigarettes 1 Smokeless Tobacco: Never Used Comments Alcohol Use Standard Drinks/Week Yes 0 (1 standard drink = 0.6 o z pure alcohol) Sex Assigned at Date Recorded Not on file Last Filed Vital Signs Reading Time Taken Comments Vital Sign 115/57 07/22/2018 2:30 AM GEOPHYSICAL SUPPORT SPECIALIST Blood Pressure 117 07/22/2018 2:30 AM GEOPHYSICAL SUPPORT SPECIALIST Pulse 36.3 C (97.4 F) 07/22/2018 12:20 AM GEOPHYSICAL SUPPORT SPECIALIST Temperature 18 07/22/2018 2:30 AM GEOPHYSICAL SUPPORT SPECIALIST Respiratory Rate 96% 07/22/2018 2:30 AM GEOPHYSICAL SUPPORT SPECIALIST Oxygen Saturation - - Inhaled Oxygen Concentration 81.6 kg (180 lb) 07/22/2018 12:20 AM GEOPHYSICAL SUPPORT SPECIALIST Weight 180.3 cm (5' 11") 07/22/2018 12:20 AM GEOPHYSICAL SUPPORT SPECIALIST Height 25.1 07/22/2018 12:20 AM GEOPHYSICAL SUPPORT SPECIALIST Body Mass Index Plan of Treatment Health Maintenance Due Date Last Done Comments Varicella Vaccines (1 of 1988 2 - 2-dose childhood series) COVID-19 Vaccine (1) 1999 Hepatitis C Screening 2005 MMR Vaccines-Adult 2006 Influenza Vaccine (#1) 2021 04/11/2017 DTaP,Tdap,and Td Vaccines 07/22/2028 07/22/2018 (2 - Td or Tdap) Pneumo-Vaccine: 65+Yrs (1 2052 of 1 - PPSV23) HIB Vaccines Aged Out No longer eligible based on patient's age to complete this topic IPV Vaccines Aged Out No longer eligible based on patient's age to complete this topic Meningococcal Vaccine Aged Out No longer eligib le based on patient's age to complete this topic Pneumo-Vaccine: Peds (0-5 Aged Out No longer el igible based on patient's age to Yrs) & At-Risk Patients complete this topic (6-64 Yrs) Rotavirus Vaccines Aged Out No longer eligible based on patient's age to complete this topic Results Not on filefrom Last 3 Months Insurance Type Payer Benefit Subscriber ID Effective Phone Address Plan / Dates Group [employer] [id number] 2018- [phone] [address] Present [address] [place] [address] Advance Directives For more information, please contact: [phone] Patient Bilingual Executive Assistant Explanation Type Date Recorded Advance Directives and Living Will Power of Pharmacy Grad Intern Care Teams Start Date End Date Demolition Crane Operator Relationship Specialty 07/22/18 Unassigned, None PCP - General RADHA
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
[2021-03-28] MEDS ORDERED: LIDOCAINE 1% INJ 20 ML 20 ML VIAL INJ ONE (03:15)
[2021-03-28] MEDS ORDERED: TRIM/SULFAMETH 160/800 (SEPTRA DS) TAB PO ONE (03:30)
[2021-03-28] MEDS ORDERED: SULF1TAB38 PO (03:53)
--- NOTE | 2021-03-28 03:53 | ED Integumentary General ---
General Chief Complaint: Skin/Wound Problems Stated Complaint: CYST IN LEFT ARM ANA MARIA Nursing Triage Note: TO ED VIA POV AND AMBULATORY TO ROOM 5 WITH C/O ABSCESS TO LEFT ARM PIT THAT STARTED APPROX 5 DAYS AGO. PT WORKS USING [employer] AT [employer] AND PAIN BECAME INCREASINGLY WORSE TONIGHT DUE TO THE FRICTION. Source: patient Exam Limitations: no limitations History of Present Illness Date Seen by Provider: Mar 28, 2021 Time Seen by Provider: 02:53 Initial Comments This 35-year-old gentleman presents to the emergency room with a growing abscess in the left axilla. It became too painful to put his arm down tonight so he presents to the ER. He has some crusted drainage. No significant inflammatory changes. He denies fever. Allergies and Home Medications Allergies Coded Allergies: penicillin G (Verified Allergy, Unknown, 08/10/19) Patient Home Medication List Home Medication List Reviewed: Yes Sulfamethoxazole/Trimethoprim (Bactrim Ds Tablet) 1 Each Tablet, 1 EACH PO BID Prescribed by: YOLANDA MONTIEL on 03/28/21 0353 Review of Systems Review of Systems Constitutional: no symptoms reported EENTM: no symptoms reported Respiratory: no symptoms reported Cardiovascular: no symptoms reported Gastrointestinal: no symptoms reported Genitourinary: no symptoms reported Musculoskeletal: no symptoms reported Skin: see HPI Psychiatric/Neurological: No Symptoms Reported Endocrine: No Symptoms Reported Hematologic/Lymphatic: No Symptoms Reported Past Ahywgbn-Flqfjr-Zwscuf Hx Patient Social History Tobacco Use?: Yes Substance use?: No Alcohol Use?: No Seasonal Allergies Seasonal Allergies: No Past Medical History Surgeries: Yes (THORACIC SURGERY) Respiratory: No Cardiac: No Neurological: No Genitourinary: No Gastrointestinal: No Musculoskeletal: No Endocrine: No HEENT: No Cancer: No Psychosocial: Yes (ALCOHOLISM) Anxiety Integumentary: No Blood Disorders: No Physical Exam Vital Signs Vital Signs - First Documented 03/28/21 02:51 Temp 36.3 Pulse 91 Resp 16 B/P (MAP) 144/88 (106) Pulse Ox 100 O2 Delivery Room Air Capillary Refill : Less Than 3 Seconds General Appearance: WD/WN, mild distress HEENT: normal ENT inspection Neck: normal inspection Cardiovascular: regular rate, rhythm, no edema, no murmur Respiratory: lungs clear, normal breath sounds, no respiratory distress Extremities: other (Large fluctuant abscess in the left axilla with some drainage and crusting) 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 Lidocaine 0.5 mL was injected into the skin over the center of the abscess. Skin was then again cleaned with chlorhexidine. A 1 cm incision was made over the center of the abscess. A large amount of thick greenish foul-smelling purulent drainage was expressed. Abscess cavity was irrigated with saline using an 18-gauge catheter tip. This resulted in expression of more purulent material. Wound was dressed with gauze and tape. Progress/Results/Core Measures Results/Orders Micro Results Microbiology 03/28/21 Gram Stain - Final, Resulted 03/28/21 Wound Culture, Resulted Pending My Orders Orders - YOLANDA PERALES MD Lidocaine 1% Inj 20 Ml (Xylocaine 1% Inj (03/28/21 03:15) Wound Culture (03/28/21 03:22) Sulfamethoxazole/Trimet Ds Tab (Bactrim (03/28/21 03:30) Medications Given in ED Vital Signs/I&O 03/28/21 03/28/21 02:51 03:58 Temp 36.3 Pulse 91 80 Resp 16 18 B/P (MAP) 144/88 (106) 132/89 Pulse Ox 100 99 O2 Delivery Room Air Room Air Blood Pressure Mean: 106 Progress Progress Note : Progress Note Skin was cleaned with alcohol wipes. A small lidocaine injection was used for local anesthetic of the skin. Incision and drainage of the abscess was perform ed. Abscess was irrigated with saline using an 18-gauge IV catheter. Patient was treated with Bactrim Departure Impression Primary Impression: Encounter for incision and drainage procedure Additional Impression: Abscess of left axilla Disposition: HOME, SELF-CARE Condition: Improved Departure-Patient Inst. Decision time for Depature: 03:00 Referrals: NO,LOCAL PHYSICIAN (PCP/Family) Primary Care Physician Patient Instructions: Abscess Incision and Drainage Add. Discharge Instructions: Your abscess should drain for the next few days. You may use warm moist compresses several times a day or soak in a warm bathtub several times a day to help it continue draining. Complete your antibiotics as prescribed. Use the chlorhexidine soap provided in your bathtub soaks and with your regular soap to wash with for at least the next week. Return to care if you have worsening symptoms or develop new symptoms such as fever. Call with questions or concerns. All discharge instructions reviewed with patient and/or family. Voiced understanding. Scripts Sulfamethoxazole/Trimethoprim (Bactrim Ds Tablet) 1 Each Tablet 1 EACH PO BID, #14 TAB Prov: YOLANDA PERALES MD 03/28/21 YOLANDA PERALES MD Mar 28, 2021 03:53
[2021-03-28 03:58] VITALS: BP 132/89
== END 2021-03-28 03:59 | disposition home or self-care (01) ==
LOC: EDUNIT# 02:34 → ER 02:40
DX: L02.412 Cutaneous abscess of left axilla (principal); Z72.0 Tobacco use
CPT/HCPCS: 87070; 87205; 99283

== ENCOUNTER 2022-01-08 02:21 | Emergency (ER) | payer BC, OTHER ==
[~2022-01-08] VITALS: Ht 180.3 cm; Wt 85.8 kg
[~2022-01-08 02:21] MED LIST: SULF1TAB38 PO
[2022-01-08] MEDS ORDERED: LIDOCAINE 2% 20 ML (XYLOCAINE) VIAL INJ STA (02:43)
[2022-01-08] MEDS ORDERED: CLINDAMYCIN 600 MG/4ML (CLEOCIN) VIAL IM ONE (02:45)
[2022-01-08] MEDS ORDERED: LIDOCAINE 1% INJ 20 ML VIAL ONE (02:49)
[2022-01-08] MEDS ORDERED: KETOROLAC 30 MG/ML VIAL IVP ONE (03:00)
[2022-01-08] MEDS ORDERED: CLINDAMYCIN 900 MG/50 ML IVPB 50 ML IV ONE (03:00)
[2022-01-08] MEDS ORDERED: RX-NAPROXEN (NAPROSYN) 250 MG TAB PPK#4 PO STA (03:16)
[2022-01-08] MEDS ORDERED: TRAM-42 PO (03:18)
[2022-01-08] MEDS ORDERED: NAPR500T8 PO (03:18)
[2022-01-08] MEDS ORDERED: CLIN-144 PO (03:18)
--- NOTE | 2022-01-08 03:18 | ED Integumentary General ---
General Chief Complaint: Skin/Wound Problems Stated Complaint: CYST-LEFT SIDE ARMPIT Nursing Triage Note: PT ARRIVAL TO ER WITH COMPLAINT OF ABSCESS TO LEFT SIDE. PT STATES THAT HE NOTICED IT YESTERDAY. PT STATES THAT HE HAS HISTORY OF ABSCESS. PT STATES THAT IT IS A SHARP PAIN AT 8/10. PT HAS REDDENED LUMP TO LEFT SIDE. ABSCESS IS SIZE OF 1/2 A GOLF BALL. Source: patient History of Present Illness Date Seen by Provider: Jan 08, 2022 Time Seen by Provider: 02:34 Initial Comments PT ARRIVES VIA POV FROM HOME C/O ABSCESS TO LEFT FLANK AREA STATES IT HAS BEEN THERE "FOR A COUPLE OF DAYS" NO DRAINAGE NO FEVER HAS HAD THE SAME MULTIPLE TIMES, AND HAS HAD TO HAVE I&D DONE TWICE BEFORE--STATES IT WAS "STAPH" "BUT NOT MRSA" PT HAS EXTENSIVE CYSTIC BACK ACNE--STATES HE HAS BEEN "ON EVERYTHING INCLUDING ACCUTANE" WITHOUT IMPROVEMENT IN ACNE. HAS NOT BEEN ON ANY TREATMENT FOR A FEW YEARS, AND NO RECENT ANTIBIOTIC USE. HAS NOT SOUGHT CARE UNTIL TONIGHT HAS NOT TAKEN ANYTHING FOR PAIN PCP: KALE HUNTLEY AT [facility] Allergies and Home Medications Allergies Coded Allergies: penicillin G (Verified Allergy, Unknown, 08/10/19) Patient Home Medication List Home Medication List Reviewed: Yes Clindamycin HCl (Clindamycin HCl) 300 Mg Capsule, 300 MG PO QID Prescribed by: MARY SANCHEZ on 01/08/22317 Naproxen (Naproxen) 500 Mg Tablet.dr, 500 MG PO BID Prescribed by: MARY SNACHEZ on 01/08/22317 Sulfamethoxazole/Trimethoprim (Bactrim Ds Tablet) 1 Each Tablet, 1 EACH PO BID Prescribed by: YOLANDA MONTIEL on 03/28/21352 Tramadol HCl (Ultram) 50 Mg Tablet, 50 MG PO Q4H Prescribed by: MARY SANCHEZ on 01/08/22317 Review of Systems Review of Systems Constitutional: no symptoms reported Respiratory: no symptoms reported Cardiovascular: no symptoms reported Gastrointestinal: no symptoms reported Skin: see HPI Psychiatric/Neurological: No Symptoms Reported Past Lmejlqe-Hfggyp-Aoiyxj Hx Patient Social History Tobacco Use?: Yes Tobacco type used: Cigarettes Smoking Status: Current Everyday Smoker Use of E-Cig and/or Vaping dev: No Substance use?: No Alcohol Use?: No Pt feels they are or have been: No Immunizations Up To Date Influenza Vaccine Up-to-Date: No; Not Current Second COVID19 Vaccination John: 2020 COVID19 Vaccine [facility] Former: UNKNOWN Seasonal Allergies Seasonal Allergies: No Past Medical History Surgeries: Yes (THORACIC SURGERY; ABSCESS I&D'S) Respiratory: No Cardiac: No Neurological: No Genitourinary: No Gastrointestinal: Yes Gastroesophageal Reflux Musculoskeletal: No Endocrine: No HEENT: No Cancer: No Psychosocial: Yes (ALCOHOLISM) Anxiety Integumentary: Yes (CYSTIC ACNE WITH ABSCESSES AND I&D'S) Blood Disorders: No Physical Exam Vital Signs Vital Signs - First Documented 01/08/22 02:30 Temp 36.8 Pulse 93 Resp 18 B/P (MAP) 146/99 (115) Pulse Ox 98 O2 Delivery Room Air Capillary Refill : Less Than 3 Seconds General Appearance: WD/WN, no apparent distress, thin, other (DIRTY, REEKS OF CIGARETTES) Cardiovascular: regular rate, rhythm Respiratory: normal breath sounds Extremities: normal inspection Neurologic/Psychiatric: no motor/sensory deficits, alert, normal mood/affect, oriented x 3 Skin: normal color, warm/dry, other (EXTENSIVE CYSTIC BACK ACNE. LEFT FLANK WITH 10 X 7 CM FLUCTUANT ABSCESS. HAS ANOTHER SMALLER AREA THAT IS 7 X 4 CM, IS NOT FLUCUTANT OR RAISED --JUST SUPERIOR AND MEDIAL TO THE ABSCESS. NO DRAINAGE. NO STREAKS. + LEFT AXILLARY ADENOPATHY. ) Skin Problem Character: abscess Procedures/Interventions I&D : Site: LEFT FLANK Blade Size: 11 I & D Procedure: sterile drapes applied, sterile dressing applied, gauze wick placed, Wound Packing Packing/Drain: Idoform 1/4 Progress CLEANSED WITH ALCOHOL, INJECTED WITH 1% LIDOCAINE PLAIN CLEANSED WITH BETASEPT INCISED WITH #11 BLADE LARGE AMOUNT OF BLOODY PURULENT DRAINAGE--CULTURES OBTAINED AND SENT TO LAB AREA PROBED TO BREAK UP ANY LOCULATIONS IRRIGATED WITH STERILE SALINE PACKED WITH 1/4" IODOFORM GAUZE DRESSED WITH ABD DRESSING Progress/Results/Core Measures Results/Orders My Orders Orders - MARY SANCHEZ DO Lidocaine 1% Inj 20 Ml (Xylocaine 1% Inj (01/08/22 02:49) Clindamycin 900 Mg/50 Ml Ivpb (Cleocin P (01/08/22 03:00) Ketorolac Injection (Toradol Injection) (01/08/22 03:00) Wound Culture (01/08/22 03:15) Wound Dressing-Ed (01/08/22 03:16) Rx-Naproxen (Rx-Naprosyn) (01/08/22 03:16) Rx-Tramadol Hcl (Rx-Ultram) (01/08/22 03:16) Medications Given in ED Current Medications Medications Dose Ordered Sig/Ronnell Route Start Time Stop Time Status Last Admin Dose Admin Clindamycin Phosphate/Dextrose 50 ml @ 100 mls/hr ONCE ONCE IV 01/08/22 03:00 01/08/22 03:29 DC 01/08/22 03:01 100 MLS/HR Ketorolac Tromethamine 30 mg ONCE ONCE IVP 01/08/22 03:00 01/08/22 03:01 DC 01/08/22 03:01 30 MG Lidocaine HCl 20 ml STK-MED ONCE .ROUTE 01/08/22 02:49 01/08/22 02:52 DC 01/08/22 03:02 20 ML Vital Signs/I&O 01/08/22 01/08/22 02:30 03:39 Temp 36.8 Pulse 93 81 Resp 18 18 B/P (MAP) 146/99 (115) 125/90 Pulse Ox 98 99 O2 Delivery Room Air Room Air Blood Pressure Mean: 115 Progress Progress Note : Progress Note GIVEN IV CLINDAMYCIN AND TORADOL SMALLER AREA OF CELLULITIS IS NOT AMENABLE TO DRAINAGE AT THIS TIME. Departure Impression Primary Impression: abscess left flank Additional Impression: Cystic acne vulgaris Disposition: HOME, SELF-CARE Condition: Stable Departure-Patient Inst. Decision time for Depature: 03:17 Referrals: KASSI HUNTLEY APRN (PCP) Primary Care Physician Patient Instructions: Abscess Incision and Drainage (DC) Add. Discharge Instructions: LEAVE DRESSING IN PLACE FOLLOW UP WITH [facility] IN 2 DAYS FOR WOUND RECHECK AND REPACKING. All discharge instructions reviewed with patient and/or family. Voiced understanding. Scripts Tramadol HCl (Ultram) 50 Mg Tablet 50 MG PO Q4H for Pain, #20 TAB Prov: HAKAN SANCHEZA K DO 01/08/22 Naproxen (Naproxen) 500 Mg Tablet.dr 500 MG PO BID, #20 TAB Prov: DANIEL,MARY K DO 01/08/22 Clindamycin HCl (Clindamycin HCl) 300 Mg Capsule 300 MG PO QID for 10 Days, #40 CAP Prov: MARY SANCHEZ DO 01/08/22 MARY SANCHEZ DO Jan 08, 2022 03:18
[2022-01-08 03:39] VITALS: BP 125/90
== END 2022-01-08 03:40 | disposition home or self-care (01) ==
LOC: EDUNIT# 02:21 → ER 02:26
DX: L02.211 Cutaneous abscess of abdominal wall (principal); L70.0 Acne vulgaris; F17.210 Nicotine dependence, cigarettes, uncomplicated
CPT/HCPCS: 87070; 87205